=== PATIENT | male | born 1970 | race Caucasian/White ===

== ENCOUNTER → 2024-03-07 09:36 | Outpatient (REF) | payer OTHER, SELFPAY | LOC: HWRAD 09:36 | PROVIDERS: ATTENDING PHYSICIAN Nurse Practitioner Primary Care | DX: R10.84 Generalized abdominal pain (principal) | CPT/HCPCS: 76700 ==

== ENCOUNTER → 2024-04-11 09:45 | Outpatient (REF) | payer OTHER, SELFPAY | LOC: RAD 09:45 | PROVIDERS: ATTENDING PHYSICIAN Nurse Practitioner Primary Care | DX: R10.84 Generalized abdominal pain (principal) | CPT/HCPCS: 74160; Q9967 ==

== ENCOUNTER → 2025-02-23 06:56 | Outpatient (REF) | payer OTHER, SELFPAY | LOC: HWRCS 06:56 | DX: R01.1 Cardiac murmur, unspecified (principal) | CPT/HCPCS: 93306 ==